=== PATIENT | male | born 1990 | race African-American/Black ===

== ENCOUNTER 2016-08-29 23:48 | Emergency (ER) | payer OTHER ==
[2016-08-29 23:58] VITALS: BP 140/93; PULSE 113; TEMP 98; BMI 43.0
--- NOTE | 2016-08-30 02:06 | PDOC ---
History of Present Illness - General Chief Complaint: Edema Stated Complaint: DIARRHEA Time Seen by Provider: 08/30/16 00:33 - History of Present Illness Initial Comments: 08/30/16 02:00 CHIEF COMPLAINT: Issues HISTORY OF PRESENT ILLNESS: 26-year-old male with history of bipolar disorder, attention, diabetes, PTSD, presents to ED with multiple complaints patient states that he "can't feel blood to my handwritten sleeping sometimes and I have to palpate hands to get feeling. Patient states that he also has had diarrhea on and off the last couple of weeks, and he feels like his chest is sore and his esophagus burned. Patient states that he also feels he tripped his kidneys to his back and sometimes hears "test sounds "and he feels sweaty. Patient feels like he is dizzy today and like he might have a fever. Patient denies any rectal bleeding but states that he had a bowel movement this morning that was "like diarrhea. Patient also states that he has a left swollen foot. And he has swelling to the suprapubic area, "but not his testicles". His last HIV actually test was in June and it was negative "but there's a white ring inside of my mouth and I'm not sure where that came from." No recent travel or sick contacts. PAST MEDICAL HISTORY: Denies past medical history FAMILY HISTORY: Denies SOCIAL HISTORY: Denies tobacco, alcohol, illicit drug use. SURGICAL HISTORY: Denies ALLERGIES: No known drug allergies REVIEW OF SYSTEMS General/Constitutional: Denies fever or chills. Denies weakness, weight change. HEENT: Denies change in vision. Denies ear pain or discharge. Denies sore throat. Cardiovascular: Denies chest pain or shortness of breath. Respiratory: Denies cough, wheezing, or hemoptysis. Gastrointestinal: Denies nausea, vomiting, diarrhea or constipation. Denies rectal bleeding. Genitourinary: Denies dysuria, frequency, or change in urination. Musculoskeletal: Denies joint or muscle swelling or pain. Denies neck or back pain. Skin and breasts: Denies rash or easy bruising. Neurologic: Denies headache, vertigo, loss of consciousness, or loss of sensation. Psychiatric: Denies depression or anxiety. PHYSICAL EXAM General Appearance: Well-appearing, appropriately dressed. No apparent distress , no intoxication. HEENT: EOMI, PERRLA, normal ENT inspection, normal voice, TMs normal, pharynx normal. No conjunctival pallor. No photophobia, scleral icterus. Neck: Supple. Trachea midline. No tenderness, rigidity, carotid bruit, stridor , lymphadenopathy, or thyromegaly. Respiratory/Chest: Lungs CTAB. No shortness of breath, chest tenderness, respiratory distress, accessory muscle use. No crackles, rales, rhonchi, stridor , wheezing, dullness Cardiovascular: RRR. S1, S2. No JVD, murmur, bradycardia, tachycardia. Vascular Pulses: Dorsalis-Pedis (R): 2+, Dorsalis-Pedis (L): 2+ Gastrointestinal/Abdominal: Normal bowel sounds. Abdomen soft, non-distended. No tenderness or rebound tenderness. No organomegaly, pulsatile mass, guarding , hernia, hepatomegaly, splenomegaly. Lymphatic: No adenopathy, tenderness. Musculoskeletal/Extremities: Normal inspection. FROM of all extremities, normal capillary refill. Pelvis Stable. No CVA tenderness. No tenderness to extremities, pedal edema, swelling, erythema or deformity. Integumentary: Appropriate color, dry, warm. 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 Fully oriented, alert. Appropriate mood/affect. Motor strength 5/5. No appreciable EOM palsy, facial droop or sensory deficit. Past History - Past Medical History Allergies/Adverse Reactions: Allergies Allergy/AdvReac Type Severity Reaction Status Date / Time Shellfish Allergy Verified 08/29/16 23:53 tetracycline [Tetracycline] Allergy Verified 08/29/16 23:53 Home Medications: Ambulatory Orders Ativan 2 mg PO PRN 02/11/12 Geodon 20 mg PO BID 02/11/12 Lexapro 20 mg PO DAILY 02/11/12 Omeprazole [Prilosec (RX)] 1 tab PO DAILY 02/11/12 Valium 1 tab PO PRN 02/11/12 Benztropine Mesylate [Cogentin -] 1 mg PO BID #0 tablet 02/14/12 Clonazepam [Klonopin -] 1 mg PO DAILY #0 tablet 02/14/12 Duloxetine [Cymbalta -] 60 mg PO DAILY #0 capsule. 02/14/12 Pantoprazole Sodium [Protonix -] 20 mg PO DAILY #0 tablet.ec 02/14/12 Thiothixene [Navane -] 5 mg PO BID #0 capsule 02/14/12 Tretinoin/Emollient Base [Tretinoin 0.05% Emollient Crm] 40 gm TP DAILY #0 cream..g. 02/14/12 Diabetes: Yes HTN: Yes Psychiatric Problems: Yes (Bipolar disorder, including anxiety, and suicidal ideation) Suicide Attempt (Hx): Yes - Psycho/Social/Smoking Cessation Hx Anxiety: Yes Suicidal Ideation: No Smoking Status: No Smoking History: Never smoked Have you smoked in the past 12 months: No Number of Cigarettes Smoked Daily: 0 Information on smoking cessation initiated: No Hx Alcohol Use: No Drug/Substance Use Hx: No Substance Use Type: None *Physical Exam - Vital Signs Last Vital Signs Temp Pulse Resp BP Pulse Ox 98.0 F 113 H 14 140/93 97 08/29/16 23:53 08/29/16 23:53 08/29/16 23:53 08/29/16 23:53 08/29/16 23:53 ED Treatment Course - LABORATORY CBC & Chemistry Diagram: 08/30/16 01:29 Medical Decision Making - Medical Decision Making 08/31/16 03:55 26 yo M with significant psych history presents to ED with multiple complaints including back pain, suprapubic pain, and concern for HIV. Patient exam unremarkable. -CBC -Urine -HIV Labs negative. Patient reassured; discussed with patient need for f/u with PMD for further evaluation. Patient verbalized understanding and agrees to plan. 08/31/16 03:56 *DC/Admit/Observation/Transfer Diagnosis at time of Disposition: Anxiety - Discharge Dispostion Admit: No - Referrals Referrals: Mercy De Leon MD [Staff Physician] - - Patient Instructions Printed Discharge Instructions: DI for Anxiety -- Adult Additional Instructions: Please follow up with your primary care doctor as discussed. If you develop fever, chills, nausea, vomiting, diarrhea, chest pain, shortness of breath, or any new or worsening symptoms, please return to the ED.
[2016-08-30 02:21] LABS: EOSINOPHIL 5.5 % (0-4.5); MCH 28.3 pg (25.7-33.7); MCHC 33.1 g/dl (32.0-35.9); MEAN CELL VOLUME 85.6 fl (80-96); MEAN PLT VOLUME 8.5 fl (7.5-11.1); NEUTROPHILS 55.2 % (42.8-82.8); PLATELET COUNT 239 K/MM3 (134-434); WHITE BLOOD COUNT 6.6 K/mm3 (4.0-10.0)
[2016-08-30 03:02] LABS: URINE APPEARANCE CLEAR; URINE BILIRUBIN NEGATIVE (NEGATIVE); URINE BLOOD NEGATIVE (NEGATIVE); URINE COLOR LTYELLOW; URINE GLUCOSE (UA) 1+ (NEGATIVE); URINE KETONE NEGATIVE (NEGATIVE); URINE LEUK ESTERASE NEGATIVE (NEGATIVE); URINE NITRITE NEGATIVE (NEGATIVE); URINE PROTEIN NEGATIVE (NEGATIVE); URINE UROBILINOGEN 2.0 E.U/dl E.U./dl (0.2-1.0)
[2016-08-30 03:47] LABS: HIV 1 & 2 AB NEGATIVE; HIV 1 AGp24 NEGATIVE
== END 2016-08-30 04:18 | disposition home or self-care (01) ==
LOC: JER 23:48
DX: F41.8 Other specified anxiety disorders (principal); I10 Essential (primary) hypertension; E11.9 Type 2 diabetes mellitus without complications; F31.9 Bipolar disorder, unspecified; F43.10 Post-traumatic stress disorder, unspecified
CPT/HCPCS: 36415; 81003; 85025; 87389; 99283-25

== ENCOUNTER 2017-01-27 20:56 | Emergency (ER) | payer OTHER ==
[2017-01-27 21:12] VITALS: TEMP 98.5; BMI 38.5
--- NOTE | 2017-01-27 23:14 | PDOC ---
History of Present Illness - General Chief Complaint: Suicidal Stated Complaint: SUICIDAL Time Seen by Provider: 01/27/17 21:40 History Source: Patient Exam Limitations: No Limitations - History of Present Illness Initial Comments: 26-year-old male with a history of suicidal tendencies presents then's to the emergency department complaining of suicidal ideation with the plan. Patient states he's been extremely depressed with constant memories of arguments between him and his aunts boyfriend. Patient states he saw his psychiatrist and therapist 3 days ago and was informed to be seen in the emergency department if these thoughts continue. This evening, patient had a plan "I wanted to take a social worker school knife to my wrist", after feeling depressed. Patient says he has homicidal tendencies is someone gets an upset. Otherwise, patient denies any headache, dizziness, lightheadedness, visual disturbance, neck pains, back pains, chest pain, shortness of breath, abdominal pains, urinary symptoms, Matty numbness or tingling sensation. Patient psych history started 27 years ago. He says 7 years ago, he tried overdosing on muscle relaxers. Therapist: Harshad Harrington/ pt sees her once a week/ usually on a Monday Psychiatrist: Dr. Ayala/ Pt sees him once a month/last visit x3d ago Timing/Duration: other (x3d) Associated Symptoms: suicidal ideation Past History - Past Medical History Allergies/Adverse Reactions: Allergies Shellfish Allergy (Verified 01/27/17 21:12) tetracycline [Tetracycline] Allergy (Verified 01/27/17 21:12) FAMILY MEMBER STATES NO REAL ALLERGY TO TETRACYCLINE , IT JUST RUNS IN THE FAMILY AND SHE DOES NOT WANT HIM TO HAVE IT. Home Medications: Ambulatory Orders Ativan 2 mg PO PRN 02/11/12 Geodon 20 mg PO BID 02/11/12 Lexapro 20 mg PO DAILY 02/11/12 Omeprazole [Prilosec (RX)] 1 tab PO DAILY 02/11/12 Valium 1 tab PO PRN 02/11/12 Benztropine Mesylate [Cogentin -] 1 mg PO BID #0 tablet 02/14/12 Clonazepam [Klonopin -] 1 mg PO DAILY #0 tablet 02/14/12 Duloxetine [Cymbalta -] 60 mg PO DAILY #0 capsule. 02/14/12 Pantoprazole Sodium [Protonix -] 20 mg PO DAILY #0 tablet.ec 02/14/12 Thiothixene [Navane -] 5 mg PO BID #0 capsule 02/14/12 Tretinoin/Emollient Base [Tretinoin 0.05% Emollient Crm] 40 gm TP DAILY #0 cream..g. 02/14/12 - Social History Smoking History: No Smoking Status: Never smoked Number of Cigarettes Per Day: 0 Alcohol Use: none Drug Use: none *Physical Exam - Vital Signs Last Vital Signs Temp Pulse Resp BP Pulse Ox 98.5 F 105 H 22 137/76 98 01/27/17 21:08 01/27/17 21:08 01/27/17 21:08 01/27/17 21:08 01/27/17 21:08 Plan - Laboratory CBC & Chemistry Diagram: 01/28/17 03:11 01/28/17 03:11 *DC/Admit/Observation/Transfer Diagnosis at time of Disposition: Suicidal intent - Discharge Dispostion Condition at time of disposition: Guarded - Referrals Referrals: Ras Mcdonald MD [Primary Care Provider] - Phani Perez MD [Staff Physician] - Progress Note - Progress Note Progress Note: 2201hrs; Called Dr. Perez/psychiatry communication spec 2234hrs: called Dr. Perez 2309hrs: called Dr. Perez 2321hrs: Spoke to Dr. Walsh/psychiatrist communication spec. Will see pt in the morning 0700hrs: Sign out to LADONNA Koroma/ Dr. Perez will consult in the am
[2017-01-28 03:17] LABS: BASOPHIL 0.9 % (0-2.0); EOSINOPHIL 4.2 % (0-4.5); MCHC 32.7 g/dl (32.0-35.9); MEAN CELL VOLUME 85.6 fl (80-96); MEAN PLT VOLUME 8.7 fl (7.5-11.1); NEUTROPHILS 43.8 % (42.8-82.8); PLATELET COUNT 245 K/MM3 (134-434); RDW 14.6 % (11.9-15.9); WHITE BLOOD COUNT 4.9 K/mm3 (4.0-10.0)
[2017-01-28 03:43] LABS: ALBUMIN 3.8 g/dl (3.4-5.0); ANION GAP 6 (8-16); CALCIUM 8.7 mg/dL (8.5-10.1); CO2 28 mmol/L (21-32); GLUCOSE,RANDOM 162 mg/dL (74-106); SGOT/AST 35 U/L (15-37); SGPT/ALT 45 U/L (12-78)
[2017-01-28 03:45] LABS: ALK PHOS 99 U/L (45-117); BILIRUBIN,TOTAL 0.3 mg/dL (0.2-1.0); TOT PROT 7.5 g/dl (6.4-8.2)
[2017-01-28 07:02] VITALS: BP 130/85; PULSE 82
--- NOTE | 2017-01-28 07:27 | PDOC ---
*Physical Exam - Vital Signs Last Vital Signs Temp Pulse Resp BP Pulse Ox 98.5 F 82 16 130/85 98 01/27/17 21:08 01/28/17 07:01 01/28/17 07:01 01/28/17 07:01 01/27/17 21:08 ED Treatment Course - LABORATORY CBC & Chemistry Diagram: 01/28/17 03:11 01/28/17 03:11 - ADDITIONAL ORDERS Additional order review: Laboratory Results 01/28/17 01/28/17 03:11 03:11 Sodium 143 Potassium 4.0 D Chloride 109 H Carbon Dioxide 28 Anion Gap 6 L BUN 12 D Creatinine 1.0 D Creat Clearance w eGFR > 60 Random Glucose 162 H D Calcium 8.7 Total Bilirubin 0.3 D AST 35 D ALT 45 Alkaline Phosphatase 99 Total Protein 7.5 Albumin 3.8 Acetaminophen < 2.000 L 01/28/17 03:11 RBC 4.53 MCV 85.6 MCHC 32.7 RDW 14.6 MPV 8.7 Neutrophils % 43.8 D Lymphocytes % 36.9 Monocytes % 14.2 H D Eosinophils % 4.2 Basophils % 0.9 Medical Decision Making - Medical Decision Making 01/28/17 07:26 Patient received in sign out from ROCHELLE landeros. Patient here for suicidal attempt using a patient resource specialist knife to cut himself. Patient awaiting psychiatry. Urine tox not collected including urinalysis. 01/28/17 10:[address] Perez here in the ER and states patient has history of bipolar and has an intense outpatient program he follows at [facility]. Dr. Perez states he has contracted for safety and feels his attempt was a cry for attention versus concern for inpatient psychiatric treatment. He is recommended to discharge patient. Patient has continued to show no signs of aggression or hopelessness in the ED since my arrival. Patient has contracted for safety with me and will be discharged home. *DC/Admit/Observation/Transfer Diagnosis at time of Disposition: Suicidal intent, Anxiety, Bipolar I disorder - Discharge Dispostion Disposition: HOME Condition at time of disposition: Good - Referrals Referrals: Phani Perez MD [Staff Physician] - Ras Mcdonald MD [Primary Care Provider] - - Patient Instructions Printed Discharge Instructions: Bipolar Disorder (Alternative Therapy), DI for Depression -- Adult, DI for Bipolar Disorder Additional Instructions: Please go to your outpatient program as recommended by Dr. Perez and continue medications. At any given time if you feel hopeless, inability to cope, or develop increasing anxiety, please return to ED - Post Discharge Activity
[2017-01-28 08:27] LABS: URINE APPEARANCE CLEAR; URINE BILIRUBIN NEGATIVE (NEGATIVE); URINE BLOOD NEGATIVE (NEGATIVE); URINE COLOR LTYELLOW; URINE GLUCOSE (UA) NEGATIVE (NEGATIVE); URINE KETONE NEGATIVE (NEGATIVE); URINE LEUK ESTERASE NEGATIVE (NEGATIVE); URINE NITRITE NEGATIVE (NEGATIVE); URINE PROTEIN NEGATIVE (NEGATIVE); URINE UROBILINOGEN 2.0 E.U/dl E.U./dl (0.2-1.0)
--- NOTE | 2017-01-28 10:24 | CON.PSY ---
Psychiatry Consult Chief Complaint: I am not suicidal any more. I feel fine. Symptoms: reports: Depressed Mood, Suicidality - Previous Psychiatric Treatment Outpatient: Less than 6 mos ago Inpatient: One prior admission - Previous Substance Abuse Treatment Outpatient: None Inpatient: None - Reason for Previous Treatment Reason for Previous Treatment: Major Depression, Past Traumatic Stress - Allergies Allergies: Allergies Allergy/AdvReac Type Severity Reaction Status Date / Time Shellfish Allergy Verified 01/27/17 21:12 tetracycline [Tetracycline] Allergy Verified 01/27/17 21:12 - Current Living Status Usual Living Arrangement: With Significant Other - Current Mental Status Evaluation Appearance: Well Groomed Attitude: Cooperative - Affect Affect: Full Range Appropriateness: Appropriate to Content - Mood Mood: Euthymic - Speech/Language Expressive: Coherent - Psychomotor Activity Psychomotor Activity: Normal - Thought Process Thought Process: Intact - Thought Content Hallucinations: Absent Delusions: Absent - Self Perception Self Perception: No Impairment - Cognition Attention: Alert Orientation: Time Memory, Immediate Recall: Intact Memory, Short Term: 3/3 Memory, Remote with Promptin/3 - Concentration Serial Sevens Intact: Yes Simple Calculations Intact: Yes - Abstraction Proverb Interpretation: Intact Judgement: Intact - Insight Insight: Intact - Impulse Control Impulse Control: Minimally Impaired - Suicidal Ideation Suicidal Ideation: No - Homicidal Ideation Homicidal Ideation: No Assessment/Plan 1) Patient has no ongoing self damaging behaviour thoughts. 2) will follow up with A in [place] this week. He has a psychiatrist and a therapist. 3) Discharge when medically stable.
[2017-01-28 11:03] LABS: URINE MARIJUANA THC NEGATIVE ng/ml (CUTOFF=50)
== END 2017-01-28 11:12 | disposition home or self-care (01) ==
LOC: JER 20:56 → SUPCPDRO 20:56 → JER 01-28 11:12
DX: R45.851 Suicidal ideations (principal); F31.9 Bipolar disorder, unspecified; F31.89 Other bipolar disorder
CPT/HCPCS: 36415; 80053; 80307; 81003; 85025; 99282-25